=== PATIENT | female | born 1975 | race Caucasian/White ===

== ENCOUNTER 2020-11-24 19:23 | Emergency (ER) | payer OTHER ==
[~2020-11-24] VITALS: Ht 175.3 cm; Wt 108.9 kg
[2020-11-24 21:54] LABS: URINE BILIRUBIN NEGATIVE (Negative); URINE BLOOD 1+ (Negative); URINE CLARITY CLEAR; URINE COLOR YELLOW; URINE GLUCOSE-RANDOM NEGATIVE (Negative); URINE KETONES NEGATIVE (Negative); URINE LEUKOCYTES NEGATIVE (Negative); URINE NITRITE NEGATIVE (Negative); URINE PROTEIN NEGATIVE (Negative); URINE UROBILINOGEN 0.2 E.U./dl (0.2-1.0)
[2020-11-24 22:11] LABS: SQUAMOUS 4-10 Moderate /LPF (0-3); URINE WBC 0-5 Rare /HPF (0-5)
[2020-11-24 22:12] LABS: BACTERIA 1-9 Few /HPF (None Seen); CASTS None Seen /LPF (None Seen); CRYSTALS None Seen /LPF (None Seen); URINE RBC 3-10 Few /HPF (0-2)
[2020-11-24] MEDS ORDERED: TORADOL 10 MG T10 MG PO (22:49)
[2020-11-24] MEDS ORDERED: NORFLEX100 MG PO (22:49)
[2020-11-24] MEDS ORDERED: MEDROLDOSEPACK PO (22:49)
[2020-11-24 22:59] VITALS: BP 145/70
== END 2020-11-24 23:00 | disposition home or self-care (01) ==
LOC: M.ERS 19:23
PROVIDERS: Personal Emergency Response Attendant
DX: M48.061 Spinal stenosis, lumbar region without neurogenic claudication (principal)